=== PATIENT | male | born 1970 ===

== ENCOUNTER 2020-08-23 08:58 | Inpatient (IN) ==
[2020-08-23 11:58] LABS: ABS Eosinophils 0.1 10^3/ul (0-0.6); ABS Lymphocytes 1.3 10^3/ul (1.0-4.8); ABS Monocytes 0.4 10^3/ul (0-0.8); ABS Neutrophils 5.6 10^3/ul (1.5-7.7); Eosinophil % 1.3 %; Hematocrit 45 % (42-52); Hemoglobin 16.1 g/dL (14.0-18.0); Lymphocyte % 17.2 %; Mean Corpuscular HGB Conc 36 g/dL (31-36); Mean Corpuscular Hemoglobin 31 pg (27-31); Mean Corpuscular Volume 88 fL (80-94); Mean Platelet Volume 6.8 fL (7.4-10.4); Platelet Count 308 10^3/uL (150-450); Red Blood Count 5.16 10^6 /uL (4.18-5.48); Red Cell Distribution Width 13 % (10-15); White Blood Count 7.4 10^3/uL (3.5-10.8)
[2020-08-23 12:14] LABS: ALT 15 U/L (7-52); AST 14 U/L (13-39); Albumin 4.2 g/dL (3.2-5.2); Albumin/Globulin Ratio 1.6 (1-3); Alkaline Phosphatase 67 U/L (34-104); Anion Gap 7 mmol/L (2-11); Blood Urea Nitrogen 9 mg/dL (6-24); CO2 Carbon Dioxide 25 mmol/L (22-32); Calcium 9.2 mg/dL (8.6-10.3); Chloride 105 mmol/L (101-111); EGFR African American 111.5 (>60); EGFR Non-African American 92.1 (>60); Globulin 2.6 g/dL (2-4); Glucose 128 mg/dL (70-100); Sodium 137 mmol/L (135-145); Total Protein 6.8 g/dL (6.4-8.9)
[2020-08-23 12:29] LABS: Acetaminophen < 15 mcg/mL; Alcohol, S < 10 mg/dL (<10); Salicylate < 2.50 mg/dL (<30)
[2020-08-23 12:43] LABS: TSH Ultra Thyroid Stim Horm 1.12 mcIU/mL (0.34-5.60)
[2020-08-23] MEDS ORDERED: Al Hydrox/Mg Hydrox/Simet LIQ 30 ML UDC PO PRN (16:31)
[2020-08-24 08:04] LABS: HDL Cholesterol 55.1 mg/dL
[2020-08-24 13:41] LABS: Vitamin D Total 25(OH) 28.2 ng/mL (20-50)
[2020-08-24 14:11] LABS: Urine Appearance Clear; Urine Bilirubin Negative (Negative); Urine Blood Negative (Negative); Urine Color Colorless; Urine Glucose Negative (Negative); Urine Ketones Trace (Negative); Urine Nitrite Negative (Negative); Urine Protein Negative (Negative); Urine Specific Gravity 1.003 (1.002-1.030); Urine Urobilinogen Negative (Negative)
[2020-08-24 14:23] LABS: Urine Benzodiazepine Screen None Detected (None Detect); Urine Cannabinoids Screen None Detected (None Detect); Urine Opiates Screen None Detected (None Detect)
[2020-08-25] MEDS: Venlafaxine XR 75 mg PO SCH (09:18)
[2020-08-26] MEDS: Venlafaxine XR 75 mg PO SCH (08:51)
[2020-08-26 15:39] LABS: Testosterone 361.33 ng/dL (240-950)
[2020-08-27] MEDS: Venlafaxine XR 75 mg PO SCH (09:01)
[2020-08-28] MEDS: Venlafaxine XR 75 mg PO SCH (08:59)
[2020-08-29 08:30] VITALS: BP 127/76
[2020-08-29] MEDS: Venlafaxine XR 75 mg PO SCH (09:00)
== END 2020-08-29 13:10 | disposition home or self-care (01) | DRG 880 ==
LOC: ED 08:58 → BSU 20:40
PROVIDERS: ADMIT Psychiatry & Neurology Psychiatry; ATTEND Psychiatry & Neurology Psychiatry